=== PATIENT | male | born 1965 ===

== ENCOUNTER 2021-07-23 14:45 | Emergency (ER) | payer SELFPAY ==
--- NOTE | 2021-07-23 14:51 | Emergency Department Report ---
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 The patient is a 56-year-old gentleman. He is not known to myself previously. He presents to the ER today with concern of possible stroke. Stroke symptoms include facial droop, dysarthria, right arm and leg weakness and numbness. Last known well time was at 4:00 in the morning. The patient denies physical pain. -: This morning Location: speech, right face, right arm, right leg Presenting Symptoms: Present: Weak/Paralyzed One Side, Facial Droop/Numbness, Unable to Speak Clearly History of same: No Place: home On Anticoagulants: No - Related Data Allergies/Adverse Reactions: Allergies Allergy/AdvReac Type Severity Reaction Status Date / Time No Known Allergies Allergy Verified 07/23/21 15:20 ED Review of Systems ROS: Stated complaint: STROKE Other details as noted in HPI Comment: Unobtainable due to pts medical conditions Constitutional: denies: fever Eyes: denies: eye discharge ENT: denies: epistaxis Respiratory: denies: cough Cardiovascular: denies: chest pain Gastrointestinal: denies: abdominal pain Neurological: weakness, numbness ED Neuro Physical Exam - General Limitations: Language Barrier, Physical Limitation General appearance: alert, anxious Suspected Stroke: Yes - Head Head exam: Present: atraumatic, normocephalic - Eye Eye exam: Present: normal appearance, EOMI. Absent: nystagmus - ENT ENT exam: Present: normal exam, normal orophraynx, mucous membranes moist, normal external ear exam, other (There is a right-sided facial droop) - Neck Neck exam: Present: normal inspection, full ROM. Absent: tenderness, meningismus - Respiratory Respiratory exam: Present: normal lung sounds bilaterally. Absent: respiratory distress, wheezes, rales, rhonchi, stridor, decreased breath sounds - Cardiovascular Cardiovascular Exam: Present: regular rate, normal rhythm, normal heart sounds. Absent: bradycardia, tachycardia, irregular rhythm, systolic murmur, diastolic murmur, rubs, gallop - GI/Abdominal GI/Abdominal exam: Present: soft. Absent: distended, tenderness, guarding, rebound, rigid, pulsatile mass - Rectal Rectal exam: Present: deferred - Extremities Exam Extremities exam: Present: normal inspection, full ROM (Left arm and left leg), other (2+ pulses noted in the bilateral upper and lower extremities. There is no palpable cord. negative Homans sign. Muscular compartments are soft. The pelvis is stable.). Absent: pedal edema, calf tenderness - Back Exam Back exam: Present: normal inspection. Absent: tenderness, CVA tenderness (R), CVA tenderness (L), paraspinal tenderness, vertebral tenderness - Neurological Exam Neurological exam: Present: alert, motor sensory deficit (There is right-sided facial droop. There is right arm and leg weakness. There is decrease in stat ions light touch right arm and right leg) - NIHSS Assessment Interval: Baseline 1a. Level of Consciousness: alert/keenly responsive 1b. LOC Questions: answers both correctly 1c. LOC Commands: performs tasks correctly 2. Best Gaze: normal 3. Visual: no visual loss 4. Facial Palsy: minor paralysis 5b. Motor Arm Right: some gravity effort 5a. Motor Arm Left: no drift 6a. Motor Leg Left: no drift 6b. Motor Leg Right: some gravity effort 7. Limb Ataxia: present 1 limb 8. Sensory: mild/moderate sensory loss 9. Best Language: mild/moderate aphasia 10. Dysarthria: mild/moderate dysarthria 11. Extinction/Inattention: no abnormality Total Score: 9 Stroke Severity: Moderate Stroke - Psychiatric Psychiatric exam: Present: anxious - Skin Skin exam: Present: warm, dry, intact, normal color. Absent: rash ED Course Vital Signs 07/23/21 15:20 Temperature 98 F Pulse Rate 67 Respiratory 16 Rate Blood Pressure 194/112 O2 Sat by Pulse 96 Oximetry - Reevaluation(s) Reevaluation #1: 07/23/21 15:15 Differential diagnosis, including but not limited to: Ischemic stroke, carotid dissection, large vessel occlusion Assessment and plan: 56-year-old gentleman, presenting with stroke syndrome, suspicious for possible left-sided MCA syndrome. He is not a TPA candidate as his last known well time is not explicitly known, he believes his last known well time is at around 4:00 AM. It is unclear if his symptoms developed at 4:00 in the morning, or if he woke up at 4:00 in the morning, and developed the symptoms. His Accu-Chek in the emergency room is within normal limits and acceptable. Given that patient is obviously not a TPA candidate, and has obvious right-sided deficits, an emergent CT scan of the brain, and CT angiogram head and neck are obtained to evaluate for stroke, large vessel occlusion, and carotid dissection. Given the time sensitive nature of stroke, the patient is emergently administratively consented for CT angiogram by myself, given the need for possible angiographic evaluation and intervention. Patient seen in consultation with stroke neurologist, Dr. Iliana Oro. She agrees with the plan of care, and also agrees that this patient is not a TPA candidate. Currently awaiting callback from neurology regarding noncontrast CT scan of the brain interpretation, as well as CT angiogram head and neck interpretation. Patient is instructed using a sticker operator that if no condition is identified that would require transfer, he will be admitted to this hospital for presumed subacute stroke. 07/23/21 15:38 Received verbal call back from radiologist that this patient has a left MCA syndrome. The patient will likely qualify for emergent endovascular intervention. We have reached out to [facility] to see if we can coordinate transfer for definitive care. Blood pressure in the 190s. We will allow for permissive hypertension at this time. N.p.o. status at this time. Discussed with the patient. He gave permission to have the details of his medical care discussed with his son. Awaiting callback from [facility] stroke neurology to discuss transfer for definitive care. We will discuss aspirin and statin administration with receiving neuro critical care Reevaluation #2: 07/23/21 15:45 Discussed history, physical, appropriate laboratory studies and imaging studies and clinical impression with [facility] stroke neurologist, Dr. Ernestina Cho He will evaluate the patient's images, and make further recommendations. He will also determine if [facility] has a bed available that can accommodate this patient. He is agreeable to statin and aspirin. Agrees with holding antihypertensive therapy at this time, for permissive hypertension. 07/23/21 16:03 Dr Ernestina Lucia has accepted this patient to [facility] This patient has an emergent condition at this time, acute arterial occlusion causing subacute stroke, and is in the window for interventional radiology/interventional neuroradiology treatment. This facility does not have the ability to treat this patient definitively, and he will therefore be transferred for definitive stroke treatment. The patient is protecting his airway, does not require advanced airway, or vasopressor support at this time. - Lab Data Result diagrams: 07/23/21 15:09 07/23/21 15:09 Lab Results 07/23/21 07/23/21 07/23/21 Range/Units 15:09 15:09 15:09 WBC 6.8 (4.5-11.0) K/mm3 RBC 4.96 (3.65-5.03) M/mm3 Hgb 14.6 (11.8-15.2) gm/dl Hct 43.0 (35.5-45.6) % MCV 87 (84-94) fl MCH 29 (28-32) pg MCHC 34 (32-34) % RDW 14.3 (13.2-15.2) % Plt Count 221 (140-440) K/mm3 Lymph % (Auto) 27.2 (13.4-35.0) % [place] % (Auto) 4.9 (0.0-7.3) % Eos % (Auto) 0.9 (0.0-4.3) % Baso % (Auto) 0.4 (0.0-1.8) % Lymph # (Auto) 1.9 (1.2-5.4) K/mm3 [place] # (Auto) 0.3 (0.0-0.8) K/mm3 Eos # (Auto) 0.1 (0.0-0.4) K/mm3 Baso # (Auto) 0.0 (0.0-0.1) K/mm3 Seg Neutrophils % 66.6 (40.0-70.0) % Seg Neutrophils # 4.6 (1.8-7.7) K/mm3 PT 14.1 (12.2-14.9) Sec. INR 0.98 (0.87-1.13) APTT 34.3 (24.2-36.6) Sec. Thrombin Time 17.9 (15.1-19.6) Sec. Sodium 135 L (137-145) mmol/L Potassium 3.9 (3.6-5.0) mmol/L Chloride 101.9 (98-107) mmol/L Carbon Dioxide 22 (22-30) mmol/L Anion Gap 15 mmol/L BUN 15 (9-20) mg/dL Creatinine 0.9 (0.8-1.3) mg/dL Estimated GFR > 60 ml/min BUN/Creatinine Ratio 17 % Glucose 186 H (75-100) mg/dL Calcium 9.0 (8.4-10.2) mg/dL Magnesium (1.7-2.3) mg/dL Total Bilirubin 0.30 (0.1-1.2) mg/dL AST 14 (5-40) units/L ALT 12 (7-56) units/L Alkaline Phosphatase 93 (35-129) units/L Total Creatine Kinase 91 (55-170) units/L CK-MB (CK-2) 2.6 (0.0-4.0) ng/mL CK-MB (CK-2) Rel Index 2.8 (0-4) Troponin T < 0.010 (0.00-0.029) ng/mL Total Protein 6.4 (6.3-8.2) g/dL Albumin 3.9 (3.9-5) g/dL Albumin/Globulin Ratio 1.6 % Plasma/Serum Alcohol (0-0.07) % 07/23/21 07/23/21 Range/Units 15:09 15:09 WBC (4.5-11.0) K/mm3 RBC (3.65-5.03) M/mm3 Hgb (11.8-15.2) gm/dl Hct (35.5-45.6) % MCV (84-94) fl MCH (28-32) pg MCHC (32-34) % RDW (13.2-15.2) % Plt Count (140-440) K/mm3 Lymph % (Auto) (13.4-35.0) % [place] % (Auto) (0.0-7.3) % Eos % (Auto) (0.0-4.3) % Baso % (Auto) (0.0-1.8) % Lymph # (Auto) (1.2-5.4) K/mm3 [place] # (Auto) (0.0-0.8) K/mm3 Eos # (Auto) (0.0-0.4) K/mm3 Baso # (Auto) (0.0-0.1) K/mm3 Seg Neutrophils % (40.0-70.0) % Seg Neutrophils # (1.8-7.7) K/mm3 PT (12.2-14.9) Sec. INR (0.87-1.13) APTT (24.2-36.6) Sec. Thrombin Time (15.1-19.6) Sec. Sodium (137-145) mmol/L Potassium (3.6-5.0) mmol/L Chloride (98-107) mmol/L Carbon Dioxide (22-30) mmol/L Anion Gap mmol/L BUN (9-20) mg/dL Creatinine (0.8-1.3) mg/dL Estimated GFR ml/min BUN/Creatinine Ratio % Glucose (75-100) mg/dL Calcium (8.4-10.2) mg/dL Magnesium 1.90 (1.7-2.3) mg/dL Total Bilirubin (0.1-1.2) mg/dL AST (5-40) units/L ALT (7-56) units/L Alkaline Phosphatase (35-129) units/L Total Creatine Kinase (55-170) units/L CK-MB (CK-2) (0.0-4.0) ng/mL CK-MB (CK-2) Rel Index (0-4) Troponin T (0.00-0.029) ng/mL Total Protein (6.3-8.2) g/dL Albumin (3.9-5) g/dL Albumin/Globulin Ratio % Plasma/Serum Alcohol < 0.01 (0-0.07) % Vital Signs 07/23/21 15:20 Temperature 98 F Pulse Rate 67 Respiratory 16 Rate Blood Pressure 194/112 O2 Sat by Pulse 96 Oximetry - EKG Data -: EKG Interpreted by Ak EKG shows normal: sinus rhythm Rate: normal When compared to previous EKG there are: previous EKG unavailable 07/23/21 15:17 EKG is interpreted at 15: 12 Sinus rhythm, rate 64 bpm. Normal axis, normal intervals, normal P wave axis. This is an abnormal EKG, there are Q waves noted. This is not a STEMI. - Radiology Data Radiology results: pending, report reviewed, image reviewed CTA NECK WITH CONTRAST HISTORY: Left MCA syndrome COMPARISON: None. TECHNIQUE: Routine CTA of the neck was performed. 3-D/MIP reformats were post processed. Percentage stenosis is determined by direct quantitative measurements of diseased internal carotid artery diameter compared with normal distal internal carotid artery reference segments or by criteria similar to NASCET where applicable.All CT scans at this location are performed using CT dose reduction for ALARA by means of automated exposure control CONTRAST: 100 ml of Omnipaque 350 FINDINGS: Aortic arch: No significant abnormality. Cervical vertebral arteries: No significant abnormality. Common carotid arteries: No significant abnormality. Carotid bifurcations: Normal Cervical internal carotid arteries: No significant abnormality. Additional findings: None. IMPRESSION: 1. No significant abnormality. CTA HEAD WITH CONTRAST FINDINGS: CTA Head: Intracranial vertebral arteries: No significant abnormality. Basilar artery: No significant abnormality. Posterior cerebral arteries: No significant abnormality. Intracranial internal carotid arteries: No significant abnor mality. Anterior cerebral arteries: No significant abnormality. Middle cerebral arteries: Left middle cerebral artery is occluded at the internal carotid artery terminus; convexity collateral circulation to the middle cerebral artery branches Dural venous sinuses:Not optimally opacified. No significant abnormality. Additional findings: None. IMPRESSION: Occluded left middle cerebral artery at the internal carotid artery terminus; over the convexity collateral circulation opacifying in a delayed fashion branches of the left middle cerebral artery CODE STROKE: Time of Communication (PTA/CDT): 2:34 PM Licensed Practitioner Receiving Report: ER Physician Signer Name: Yohana Guerra MD Signed: 07/23/2021 2:35 PM Workstation Name: [id number] SCAN OF THE HEAD: INDICATION / CLINICAL INFORMATION: 56 years Male; CODE STROKE CALL ER MAIN AT 8199 Stroke symptoms right-sided weakness and numbness,. TECHNIQUE: Routine CT head without contrast. All CT scans at this location are performed using CT dose reduction for ALARA by means of automated exposure control. COMPARISON: None. 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 ORBITS: No significant abnormality of visualized orbits. SINUSES / MASTOIDS: No significant abnormality of the visualized paranasal sinuses or mastoid air cells. ADDITIONAL FINDINGS: None. 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 TECHNIQUE: Routine CTA of the neck was performed. 3-D/MIP reformats were postprocessed. Percentage stenosis is determined by direct quantitative measurements of diseased internal carotid artery diameter compared with normal distal internal carotid artery reference segments or by criteria similar to NASCET where applicable.All CT scans at this location are performed using CT dose reduction for ALARA by means of automated exposure control CONTRAST: 100 ml of Omnipaque 350 FINDINGS: Aortic arch: No significant abnormality. Cervical vertebral arteries: No significant abnormality. Common carotid arteries: No significant abnormality. Carotid bifurcations: Normal Cervical internal carotid arteries: No significant abnormality. Additional findings: None. IMPRESSION: 1. No significant abnormality. CTA HEAD WITH CONTRAST FINDINGS: CTA Head: Intracranial vertebral arteries: No significant abnormality. Basilar artery: No significant abnormality. Posterior cerebral arteries: No significant abnormality. Intracranial internal carotid arteries: No significant abnormality. Anterior cerebral arteries: No significant abnormality. Middle cerebral arteries: Left middle cerebral artery is occluded at the internal carotid artery terminus; convexity collateral circulation to the middle cerebral artery branches Dural venous sinuses:Not optimally opacified. No significant abnormality. Additional findings: None. IMPRESSION: Occluded left middle cerebral artery at the internal carotid artery terminus; over the convexity collateral circulation opacifying in a delayed fashion branches of the left middle cerebral artery CODE STROKE: Time of Communication (PTA/CDT): 2:34 PM Licensed Practitioner Receiving Report: ER Physician Signer Name: Yohana Guerra MD Signed: 07/23/2021 2:35 PM Workstation Name: [email or web address] [id number] - Core Measures Measure Exclusions: not indicated - Thrombolytic Inclusion/Exclusion Thrombolytic Exclusion Criteria: Onset of Symptoms Unknown, Symptom Onset > 3 Hours Critical Care Time: Yes Critical care time in (mins) excluding proc time.: 45 Critical care attestation.: If time is entered above; I have spent that time in minutes in the direct care of this critically ill patient, excluding procedure time. ED Disposition Clinical Impression: Stroke, Left middle cerebral artery stroke Disposition: 02 SHORT TERM HOSPITAL Is pt being admited?: No Does the pt Need Aspirin: No Condition: Critical
[2021-07-23 15:19] LABS: Basophils % (Auto) 0.4 % (0.0-1.8); Eosinophils # (Auto) 0.1 K/mm3 (0.0-0.4); Eosinophils % (Auto) 0.9 % (0.0-4.3); Hemoglobin 14.6 gm/dl (11.8-15.2); Lymphocytes # (Auto) 1.9 K/mm3 (1.2-5.4); Lymphocytes % (Auto) 27.2 % (13.4-35.0); Mean Corpuscular HGB Conc 34 % (32-34); Mean Corpuscular Volume 87 fl (84-94); Monocytes # (Auto) 0.3 K/mm3 (0.0-0.8); Monocytes % (Auto) 4.9 % (0.0-7.3); Platelet Count 221 K/mm3 (140-440); Red Blood Count 4.96 M/mm3 (3.65-5.03); Red Cell Distribution Width 14.3 % (13.2-15.2)
[2021-07-23 15:25] VITALS: BP 194/112
--- NOTE | 2021-07-23 15:28 | Cat Scan Report ---
NONENHANCED CT SCAN OF THE HEAD: INDICATION / CLINICAL INFORMATION: 56 years Male; CODE STROKE CALL ER MAIN AT 8199 Stroke symptoms right-sided weakness and numbness,. TECHNIQUE: Routine CT head without contrast. All CT scans at this location are performed using CT dos e reduction for ALARA by means of automated exposure control. COMPARISON: None. 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 ORBITS: No significant abnormality of visualized orbits. SINUSES / MASTOIDS: No significant abnormality of the visualized paranasal sinuses or mastoid air yessi ls. ADDITIONAL FINDINGS: None. 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
--- NOTE | 2021-07-23 15:39 | Cat Scan Report ---
CTA NECK WITH CONTRAST HISTORY: Left MCA syndrome COMPARISON: None. TECHNIQUE: Routine CTA of the neck was performed. 3-D/MIP reformats were postprocessed. Percentage s tenosis is determined by direct quantitative measurements of diseased internal carotid artery diamete r compared with normal distal internal carotid artery reference segments or by criteria similar to NA SCET where applicable.All CT scans at this location are performed using CT dose reduction for ALARA b y means of automated exposure control CONTRAST: 100 ml of Omnipaque 350 FINDINGS: Aortic arch: No significant abnormality. Cervical vertebral arteries: No significant abnormality. Common carotid arteries: No significant abnormality. Carotid bifurcations: Normal Cervical internal carotid arteries: No significant abnormality. Additional findings: None. IMPRESSION: 1. No significant abnormality. CTA HEAD WITH CONTRAST FINDINGS: CTA Head: Intracranial vertebral arteries: No significant abnormality. Basilar artery: No significant abnormality. Posterior cerebral arteries: No significant abnormality. Intracranial internal carotid arteries: No significant abnormality. Anterior cerebral arteries: No significant abnormality. Middle cerebral arteries: Left middle cerebral artery is occluded at the internal carotid artery term inus; convexity collateral circulation to the middle cerebral artery branches Dural venous sinuses:Not optimally opacified. No significant abnormality. Additional findings: None. IMPRESSION: Occluded left middle cerebral artery at the internal carotid artery terminus; over the convexity travon ateral circulation opacifying in a delayed fashion branches of the left middle cerebral artery CODE STROKE: Time of Communication (LONG DISTANCE BILLING OPERATOR/CDT): 2:34 PM Licensed Practitioner Receiving Report: ER Physician Signer Name: Yohana Guerra MD Signed: 07/23/2021 3:35 PM Workstation Name: [email or web address]
[2021-07-23 15:40] LABS: Creatine Kinase MB 2.6 ng/mL (0.0-4.0)
--- NOTE | 2021-07-23 15:41 | Emergency Department Report ---
Blank Doc - Documentation Documentation: [facility] Consult Note # Demographics Consult Type: Acute Stroke Level 2 (4.5-24 hrs) Patient Location: Emergency Room First Name: Venancio Last Name: Celso Chavira Gender: Male Facility: Time of Initial Page ( Time): 07/23/2021, 14:43 Time of Return Call ( Time): 07/23/2021, 14:43 # HPI History: right sided weakness and slurred speech, symptoms were noted at 0400 when he woke # Scores Time of exam and NIHSS ( Time): 07/23/2021, 14:52 Level of Consciousness 1a: [0] = Alert; keenly responsive LOC Questions 1b: [0] = Answers both questions correctly LOC Commands 1c: [0] = Performs both tasks correctly Best Gaze 2: [0] = Normal Visual 3: [0] = No visual loss Facial Palsy 4: [2] = Partial paralysis Motor Arm Left 5a: [0] = No drift Motor Arm Right 5b: [4] = No movement Motor Leg Left 6a: [0] = No drift Motor Leg Right 6b: [3] = No effort against gravity Limb Ataxia 7: [0] = Absent Sensory 8: [0] = Normal Best Language 9: [0] = No aphasia Dysarthria 10: [1] = [id number] dysarthria Extinction and Inattention 11: [0] = No abnormality NIHSS Total: 10 # Assessment Impression: Ischemic Stroke (Acute) # Plan Thrombolytic/Intervention: NOT IV Thrombolysis or IA Intervention candidate Thrombolytic Exclusion: > 4.5 hours Intraarterial Exclusion: clinically consistent with small vessel disease Blood Pressure Management: labetolol Target Blood Pressure: SBP < 220 SBP > 100 Labs: hemoglobin A1c lipid panel Imaging: (urgency: STAT): CT Angiogram Head and CT Angiogram Neck AND call back with results if abnormal Imaging: (urgency: routine): MRI Brain without contrast Diagnostic Test: echo without bubble study Therapy/Evaluation: NPO until swallow evaluation PT/OT evaluation speech/swallow consultation Medication: aspirin 81 mg daily start statin with goal of LDL < 70 DVT Prophylaxis: SCD Other: LDL < 70 If patient has any neurological deterioration please call me back immediately permissive hypertension telemetry monitoring I have discussed my recommendations with the referring provider Disposition: admit # Logistics Telemedicine: Interactive 2 way audio and visual telecommunication technology was utilized during this visit
[2021-07-23 15:42] LABS: Alanine Aminotransferase 12 units/L (7-56); Albumin 3.9 g/dL (3.9-5); BUN/Creatinine Ratio 17; Blood Urea Nitrogen 15 mg/dL (9-20); Hemolysis Index 12
[2021-07-23] MEDS ORDERED: ASPIRIN 325 MG TAB PO ONE (15:45)
[2021-07-23] MEDS ORDERED: PRAVASTATIN 40 MG TAB PO ONE (15:45)
[2021-07-23 15:48] LABS: INR 0.98 (0.87-1.13)
[2021-07-23 15:49] LABS: Partial Thromboplastin Time 34.3 Sec. (24.2-36.6); Thrombin Time 17.9 Sec. (15.1-19.6)
--- NOTE | 2021-07-23 16:02 | XRay Report ---
CHEST 1 VIEW 07/23/2021 3:45 PM INDICATION / CLINICAL INFORMATION: Strokelike symptoms. COMPARISON: None available. FINDINGS: SUPPORT DEVICES: None. HEART / MEDIASTINUM: No significant abnormality. LUNGS / PLEURA: No significant pulmonary or pleural abnormality. No pneumothorax. ADDITIONAL FINDINGS: No significant additional findings. IMPRESSION: 1. No acute findings. Signer Name: Sj Hilario MD Signed: 07/23/2021 3:57 PM Workstation Name: [id number]
--- NOTE | 2021-07-27 18:39 | Electrocardiograph Report ---
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
== END 2021-07-23 16:50 | disposition short-term general hospital (02) ==
LOC: ED 14:45
DX: I63.512 Cerebral infarction due to unspecified occlusion or stenosis of left middle cerebral artery (principal); Z79.899 Other long term (current) drug therapy
CPT/HCPCS: 36415; 70450; 70496; 70498; 71045; 80053; 82550; 82553; 83735; 84484; 85025; 85610; 85670; 85730; 93005; 99291; A9270; Q9967; 80320; 99285; G0480